=== PATIENT | female | born 1960 | race Caucasian/White ===

== ENCOUNTER 2017-02-28 03:00 | Inpatient (IN) | payer BC, MEDICARE ==
[~2017-02-28] VITALS: Ht 162.6 cm; Wt 57.4 kg
[~2017-02-28 03:00] MED LIST: ALPR0.25 PO; BUPR10TASR PO; CLOB-25 TOP; CYCL10TA PO; FISH100049 PO; FLUO20CA8 PO; FLUO40CA PO; FLUTISP; IMIT50TA PO; KELP100T PO; LEVA1TAB2 PO; LIDO5TD TD; MAGN500C PO; MULT1TAB9 PO; OPTIVAR OU; OXYC-517 PO; PANT40TA2 PO; PRESCAP PO; PROBCAP4 PO; PROT1TAB2 PO; REFR0.1D OU; SERO1TAB PO; SUPETAB25 PO; TOPA1TAB PO; TOPI25TA10 PO; TURM500C3 PO; TUSS1CAP5 PO; VITA100072 PO; WELL200T PO; XANA0.25 PO; tumeric PO
[2017-02-28] MEDS ORDERED: OMEP20CA3 PO (03:26)
[2017-02-28] MEDS ORDERED: ALBU17IN INH (03:26)
[2017-02-28] MEDS ORDERED: BENZ200C53 PO (03:26)
[2017-02-28] MEDS ORDERED: CEFT500T3 PO (03:26)
[2017-02-28] MEDS ORDERED: ONDANSETRON 4MG/2ML VIAL (J2405) IV ONE (04:15)
[2017-02-28] MEDS ORDERED: NS 1,000 ML IV ONE (04:15)
[2017-02-28] MEDS: MORPHINE 4 MG/ML 1ML SYRINGE IV PRN ×7 (04:52→20:25)
[2017-02-28 04:58] LABS: BASO # 0.1 K/mm3 (0.0-0.2); BASO % 0.3 % (0.0-1.0); EOS # 0.6 K/mm3 (0.0-0.50); EOS % 3.3 % (0.0-3.0); LARGE UNSTAINED CELL # 0.2 K/mm3 (0.0-0.4); LARGE UNSTAINED CELL % 0.7 % (0.0-4.0); LYMPH % 14.3 % (24.0-44.0); MEAN CORPUSCULAR HGB CONC 31.8 g/dl (32.0-36.5); MONO # 0.7 K/mm3 (0.0-0.8); MONO % 3.4 % (0.0-5.0); NEUTROPHILS # 15.5 K/mm3 (1.8-7.7); PLATELET COUNT, AUTOMATED 374 k/mm3 (150-450); RED CELL DISTRIBUTION WIDTH 13.3 % (11.5-14.5); WHITE BLOOD COUNT 19.8 K/mm3 (4.0-10.0)
[2017-02-28 05:04] LABS: INR 0.91
[2017-02-28] MEDS ORDERED: LORazepam 2 MG/ML VIAL (J2060) IV STA (05:07)
[2017-02-28 05:22] LABS: ALBUMIN 3.6 GM/DL (3.2-5.2); ALBUMIN/GLOBULIN RATIO 0.88 (1.00-1.93); ALKALINE PHOSPHATASE 138 U/L (45-117); ALT/SGPT 21 U/L (12-78); ANION GAP 10 MEQ/L (8-16); AST/SGOT 17 U/L (15-37); BILIRUBIN,DIRECT < 0.1 MG/DL (0.0-0.2); BILIRUBIN,TOTAL 0.2 MG/DL (0.2-1.0); BLOOD UREA NITROGEN 18 MG/DL (7-18); CALCIUM LEVEL 9.4 MG/DL (8.5-10.1); CARBON DIOXIDE LEVEL 27 MEQ/L (21-32); CHLORIDE LEVEL 103 MEQ/L (98-107); GLOMERULAR FILTRATION RATE > 60.0 (>51); GLUCOSE, FASTING 146 MG/DL (70-105); POTASSIUM SERUM 3.8 MEQ/L (3.5-5.1); SODIUM LEVEL 140 MEQ/L (136-145); TOTAL PROTEIN 7.7 GM/DL (6.4-8.2)
[2017-02-28] MEDS: HYDROmorphone HCL 1 MG/ML SYRINGE (J1170) IV PRN ×2 (05:36→09:17)
[2017-02-28] MEDS ORDERED: ISOVUE-370 76% 100ML VIAL (Q9967) As Ordered ONE (05:49)
--- NOTE | 2017-02-28 06:30 | REPUSA ---
CLINICAL HISTORY: Abdominal pain. TECHNIQUE: Multiple axial, sagittal and coronal CT images were obtained through the abdomen and pelvi s after administration of intravenous contrast material. COMMENTS: Comparison is made to the prior exam performed on 01/23/2016. Interval appearance of a moderate partial small bowel obstruction. Transition zone in the right lower quadrant. Associated swirling of the mesentery is identified at the level of the transition zone in the right l ower quadrant. Significantly distended stomach containing fluid and food residue. No evidence of bowel perforation or pneumatosis intestinalis. Unchanged sliding hiatal hernia. Unchanged hepatic hemangioma. Mild increase in biliary ductal dilatation. The remaining liver is of uniform attenuation without mass or defect. The spleen is normal. The gallbladder is within normal limits. The pancreas is of normal contour and attenuation characteristics. There is no evidence of adrenal mass. Both kidneys demonstrate prompt and equal nephrograms. The kidneys are normal in size, shape and conf iguration. There is no evidence of renal or ureteral mass. No renal or ureteral calculi are identified. There is no hydroureter or hydronephrosis. No evidence for appendicitis. There is no evidence of abdominal ascites or lymphadenopathy. There is no evidence of intrinsic or extrinsic bladder mass. There is no pelvic ascites or lymphadeno collin. Images of the lung bases show no evidence of pleural or parenchymal mass. There are no pleural effusi ons. The bony structures are free of lytic or blastic lesions. Multilevel degenerative changes are seen in volving the thoracolumbar spine. Scattered calcifications are seen involving the aorta and major branches compatible with atherosclero sis. IMPRESSION: Comparison is made to the prior exam performed on 01/23/2016. Interval appearance of a moderate partial small bowel obstruction. Transition zone in the right lower quadrant. Associated swirling of the mesentery is identified at the level of the transition zone in the right l ower quadrant. Nonspecific finding which can be seen in internal hernia. Significantly distended stomach containing fluid and food residue. No evidence of bowel perforation or pneumatosis intestinalis. Unchanged sliding hiatal hernia. Unchanged hepatic hemangioma. Mild increase in biliary ductal dilatation. Thank you for your kind referral of this patient.
[2017-02-28] MEDS ORDERED: ONDANSETRON 4MG/2ML VIAL (J2405) IV PRN (07:45)
[2017-02-28] MEDS ORDERED: ACETAMINOPHEN TAB 650MG DOSE (2X325MG) PO PRN (07:45)
[2017-02-28] MEDS ORDERED: PROMETHAZINE INJ 25 MG/ML VIAL (J2550) IV PRN (07:45)
[2017-02-28] MEDS ORDERED: PERCOCET 5MG/325MG TAB PO PRN (07:45)
[2017-02-28] MEDS ORDERED: CLOB05OI TOP (08:28)
[2017-02-28] MEDS ORDERED: B-1210009 PO (08:28)
[2017-02-28] MEDS ORDERED: FLUT1SPR2 (08:29)
[2017-02-28] MEDS ORDERED: CULT10CA2 PO (08:34)
[2017-02-28] MEDS ORDERED: SERO200T PO (08:39)
[2017-02-28] MEDS ORDERED: TOPI50TA9 PO (08:39)
[2017-02-28] MEDS ORDERED: LINZ290C PO (08:41)
[2017-02-28] MEDS ORDERED: TRAZ1TAB14 PO (08:43)
[2017-02-28] MEDS ORDERED: OXYC-517 PO (08:43)
[2017-02-28] MEDS ORDERED: PEPPERMINT OIL PO (08:46)
[2017-02-28] MEDS ORDERED: FISH1000 PO (08:48)
[2017-02-28] MEDS ORDERED: KETO2CR TOP (08:48)
[2017-02-28] MEDS ORDERED: SUMA25TA3 PO (08:50)
[2017-02-28] MEDS ORDERED: ZOFR20TA PO (08:50)
[2017-02-28] MEDS ORDERED: LORA10TA2 PO (08:51)
[2017-02-28] MEDS ORDERED: BENT20TA PO (08:53)
[2017-02-28] MEDS ORDERED: TYLE325T5 PO (08:53)
[2017-02-28] MEDS ORDERED: [UNRECOGNIZED DRUG - OTHER] PO (08:55)
[2017-02-28] MEDS ORDERED: PEPT262T2 PO (08:55)
[2017-02-28] MEDS ORDERED: KELP100T PO (08:58)
[2017-02-28] MEDS: ENOXAPARIN 40 MG/0.4 ML SYRINGE (J1650) SC SCH (09:33)
[2017-02-28] MEDS: PANTOPRAZOLE 40MG INJ (PROTONIX) (C9113) IV SCH (09:33)
--- NOTE | 2017-02-28 09:38 | HPEPDOC ---
General Surgery H&P Date of Admission History and Physical CHIEF COMPLAINT: abdominal pain HISTORY OF PRESENT ILLNESS: 57-year-old female who presented to the emergency department early this morning sudden onset severe, sharp, lancinating abdominal pain. She had prior history of a perforated prepyloric ulcer last year requiring abdominal surgery, gram patch repair. She had some respiratory decompensation perioperatively. She returned with an intra-abdominal abscess, possibly some degree of ARDS. After this event, patient reports some sort of chronic vague abdominal pain and discomfort and constipation. She had a hiatal hernia repair in August done in [place]. During that time reports that she was admitted for 5 days for fever and shortness of breath. Since that surgery continues to have intermittent abdominal pain. She was placed on limbs as for the constipation. She was in her usual state of health up until late last night when she had some worsening of her pain when she pains mostly periumbilical. She felt nauseated but was unable to throw up. For fear that she had another perforation of her stomach, she was brought to the emergency room. ALLERGIES: Please see below. HOME MEDICATIONS: Please see below. PAST MEDICAL HISTORY: Sarcoidosis Chronic pain History of migraine headaches History of anxiety and depression Chronic fatigue PAST SURGICAL HISTORY: Left shoulder surgery for bone spur [place] bone repair Ovarian cyst removal, via a Pfannenstiel incision Omental patch repair of perforated prepyloric ulcer Laparoscopic hiatal hernia repair August 2016 PERSONAL/SOCIAL HISTORY: Denies smoking, alcohol use, or recreational drug use. REVIEW OF SYSTEMS: GENERAL: Denies chills, fatigue, fever, reports some weight loss from her admission last year for the perforation and the subsequent abscess but her weight has been relatively stable since HEENT: Denies blurred vision and double vision. Denies ear symptoms. Denies hoarseness. NECK: Denies any neck pain. CARDIOVASCULAR: Reports chest wall pain MUSCULOSKELETAL: Denies arthralgias, back pain and thrombophlebitis. SKIN: Denies rash. NEUROLOGIC: Denies headache, stroke and transient ischemic attack. PSYCHIATRIC: Denies anxiety and depression. ENDOCRINE: Denies thyroid disease. HEMATOLOGY/ONCOLOGY: Denies any bleeding or clotting disorder. HEART: Denies any chest pains, palpitations, paroxysmal dyspnea, orthopnea. PULMONARY: Reports chronic cough, exertional dyspnea. She denied gross with acute bronchitis recently has been placed on antibiotics 1 week. GASTROINTESTINAL: Reports constipation, on ilinzess, now having loose stools secondary to the linzess GENITOURINARY: Denies dysuria, frequency, hematuria and nocturia. ENDOCRINE: Denies polydipsia, polyphagia, polyuria, heat or cold intolerance. INFECTIOUS: On antibiotics for acute pancreatitis NUTRITION: Reports fair appetite. PHYSICAL EXAMINATION: VITAL SIGNS: Please see below. GENERAL APPEARANCE: Patient seen at bedside, appears mildly uncomfortable. Awake , alert, oriented. HEENT: Normocephalic, atraumatic. Mild pale palpebral conjunctivae. Anicteric sclerae. Lips dry. CHEST: No chest wall abnormalities. Normal respiratory motion/effort. NECK: Supple. No thyromegaly. No lymphadenopathies. LUNGS: Lung sounds are clear to auscultation bilaterally. No wheezing appreciated. HEART: No chest wall abnormalities. Heart rate and rhythm are regular with no murmurs. ABDOMEN: Abdomen is round, moderately distended, soft, tympanitic. Upper midline incision which is healed, scattered port site/drain incisions. Pfannensteil incision. No umbilical or groin herniation. Mild tenderness over the periumbilical area and likewise at the right lower quadrant area with minimal guarding. SKIN: Warm, moist. EXTREMITIES: Extremities have no deformities. No edema identified. NEUROLOGICAL: Awake, alert, oriented. ANCILLARIES: . LABORATORY DATA: Please see below. MICROBIOLOGY: Please see below. IMAGING: . CT abdomen and pelvis Comparison is made to the prior exam performed on 01/23/2016. Interval appearance of a moderate partial small bowel obstruction. Transition zone in the right lower quadrant. Associated swirling of the mesentery is identified at the level of the transition zone in the right lower quadrant. Nonspecific finding which can be seen in internal hernia. Significantly distended stomach containing fluid and food residue. No evidence of bowel perforation or pneumatosis intestinalis. Unchanged sliding hiatal hernia. Unchanged hepatic hemangioma. Mild increase in biliary ductal dilatation. IMPRESSION AND PLAN: Small bowel obstruction secondary to adhesions Sarcoidosis, with history of respiratory decompensation perioperatively Chronic pain M spoken to the patient and her was at the bedside with her. I have previously met her during her admission last year and I'm aware of care circumstance perioperatively. She had some unexplained respiratory decompensation maybe due to ARDS. She continues to have some vague scattered pain on her chest and her abdomen. Since surgery last year she had a hiatal hernia repair. She again had some unexpected perioperative fever or shortness of breath during that time according to her. His aortotomy do would like to avoid surgery at all possible. Right now no signs of bowel compromise. Her lactic acid is normal. This goes well with a story that this has been just present for several hours. I think she is unable to vomit because of the anal hernia repair. I spoke to them about placing a nasogastric tube to decompress the bowel. This will or may possibly also help us if she needs surgery if her abdomen is decompressed enough that we can create space laparoscopically. She has had a laparoscopic surgery in between the events last year so there is possibility that this are just localized adhesions. We'll plan to continue to monitor her. If there is any evidence of bowel compromise or worsening of her symptoms or nonresolution then she may need surgery. This has been communicated to them. They've had several questions and concerns mainly relating to how she fared last year from her surgery and his were all addressed at this time. They were in agreement with our plan of therapy. I will last the medical service to follow along with us. Vital Signs Vital Signs Date Time Temp Pulse Resp B/P (MAP) Pulse Ox O2 Delivery O2 Flow Rate FiO2 02/28/17 06:06 18 02/28/17 04:39 02/28/17 03:09 97.2 112 98 Room Air Laboratory Data Labs 24H Laboratory Tests 2 02/28/17 04:19: White Blood Count 19.8H, Red Blood Count 4.57, Hemoglobin 12.8, Hematocrit 40.2 , Mean Corpuscular Volume 88.0, Mean Corpuscular Hemoglobin 28.0, Mean Corpuscular Hemoglobin Concent 31.8L, Red Cell Distribution Width 13.3, Platelet Count 374, Neutrophils (%) (Auto) 78.0H, Lymphocytes (%) (Auto) 14.3L, Monocytes (%) (Auto) 3.4, Eosinophils (%) (Auto) 3.3H, Basophils (%) (Auto) 0.3 , Neutrophils # (Auto) 15.5H, Lymphocytes # (Auto) 3.0, Monocytes # (Auto) 0.7, Eosinophils # (Auto) 0.6H, Basophils # (Auto) 0.1, Large Unclassified Cells % 0.7, Large Unclassified Cells # 0.2, Prothrombin Time 12.3L, Prothromb Time International Ratio 0.91, Activated Partial Thromboplast Time 29.2, Anion Gap 10 , Glomerular Filtration Rate > 60.0, Lactic Acid Level 1.5, Calcium Level 9.4, Aspartate Amino Transf (AST/SGOT) 17, Alanine Aminotransferase (ALT/SGPT) 21, Alkaline Phosphatase 138H, Total Bilirubin 0.2, Direct Bilirubin < 0.1, Total Protein 7.7, Albumin 3.6, Albumin/Globulin Ratio 0.88L, Lipase 179 CBC/BMP Laboratory Tests 02/28/17 04:19 Red Blood Count 4.57, Mean Corpuscular Volume 88.0, Mean Corpuscular Hemoglobin 28.0, Mean Corpuscular Hemoglobin Concent 31.8 L, Red Cell Distribution Width 13.3, Neutrophils (%) (Auto) 78.0 H, Lymphocytes (%) (Auto) 14.3 L, Monocytes (% ) (Auto) 3.4, Eosinophils (%) (Auto) 3.3 H, Basophils (%) (Auto) 0.3, Neutrophils # (Auto) 15.5 H, Lymphocytes # (Auto) 3.0, Monocytes # (Auto) 0.7, Eosinophils # (Auto) 0.6 H, Basophils # (Auto) 0.1 Microbiology Microbiology 02/28/17 Gastrointestinal Tract Panel (PCR), Received Pending Home Medications Scheduled (Multivitamin Adults 50+) 1 Tab Tab, 1 TAB PO DAILY, (Reported) (Super B Complex Maxi) 1 Tab Tab, 1 TAB PO DAILY, (Reported) (Preservision Areds) 1 Cap Cap, 1 CAP PO BID, (Reported) Ascophyllum Nodosum (Kelp) 100 Mg Tab, 100 MG PO DAILY, (Reported) Benzonatate (Benzonatate) 200 Mg Cap, 200 MG PO TID, (Reported) Bupropion HCl (Wellbutrin Sr) 200 Mg Tab, 200 MG PO QAM, (Reported) Cefuroxime Axetil (Ceftin) 500 Mg Tab, 500 MG PO BID, (Reported) Curcuma Longa (Turmeric) Extra (Turmeric) 500 Mg Cap, 500 MG PO QAM, (Reported) Cyanocobalamin (B-12) 1,000 Mcg Tab, 1,000 MCG PO DAILY, (Reported) Fish Oil (Fish Oil 1000 mg) 1 Cap Cap, 1,000 MG PO DAILY, (Reported) Fish Oil (Fish Oil) 1,000 Mg Cap, 1,000 MG PO BID, (Reported) Fluoxetine Hcl (Fluoxetine HCl) 40 Mg Cap, 80 MG PO QAM, (Reported) Lactobacillus Rhamnosus (Culturelle) 1 Cap Cap, 1 CAP PO QPM, (Reported) Loratadine (Loratadine) 10 Mg Tab, 10 MG PO DAILY for ALLERGIES, (Reported) Magnesium Oxide (Magnesium) 500 Mg Cap, 500 MG PO QHS, (Reported) Omeprazole (Omeprazole) 20 Mg Cap, 20 MG PO QAM, (Reported) BEFORE BREAKFAST Topiramate (Topiramate) 50 Mg Tab, 50 MG PO QPM, (Reported) FOR MIGRAINES Scheduled PRN Acetaminophen (Tylenol) 325 Mg Tab, 325 MG PO QID PRN for PAIN, (Reported) Albuterol Sulfate (Ventolin Hfa) 200 Puff/8 Gm Aers, 1 DOSE INH QID PRN for SHORTNESS OF BREATH, (Reported) Alprazolam (Xanax) 0.25 Mg Tab, 0.25 MG PO DAILY PRN for ANXIETY, (Reported) Bismuth Salicylate (Pepto Bismol) 262 Mg Tab, 262 MG PO for ABDOMINAL PAIN, ( Reported) Carboxymethylcellulose Sodium (Refresh Plus) 1 E[place], 1 DROP OU QID PRN for DRY EYES, (Reported) Clobetasol Propionate (Clobetasol Propionate) 0.05 % Oin, 1 DOSE TOP DAILY PRN for RASH, (Reported) SCAR ON STOMACH Cyclobenzaprine HCl (Cyclobenzaprine HCl) 10 Mg Tab, 10 MG PO for MUSCLE SPASMS, (Reported) Dicyclomine HCl (Bentyl) 20 Mg Tab, 20 MG PO QID PRN for CRAMPS, (Reported) Fluticasone Propionate (Fluticasone Propionate 0.05%) 120 [place]/16 Gm Naspr, 2 SPRAYS NA BID PRN for ALLERGIES, (Reported) Ketoconazole (Ketoconazole) 2 % Cre, 1 DOSE TOP for RASH, (Reported) SCAR ON STOMACH AND RASH INBETWEEN BUTTOCKS Lidocaine (Lidocaine) 5 % Pad, 1 PATCH TD DAILY PRN for PAIN, (Reported) APPLIES ACROSS NECK Linaclotide Base (Linzess) 290 Mcg Cap, 290 MCG PO DAILY PRN for CONSTIPATION, ( Reported) FOR OPIOID-INDUCED CONSTIPATION Ondansetron HCl (Zofran) 4 Mg Tab, 4 MG PO for NAUSEA, (Reported) FOR MIGRAINES Oxycodone HCl (Oxycodone HCl) 5 Mg Tab, 5 MG PO 5XD PRN for PAIN, (Reported) Quetiapine Fumerate (Seroquel) 200 Mg Tab, 200 MG PO QHS PRN for SLEEP, ( Reported) Sumatriptan Succinate (Sumatriptan Succinate) 25 Mg Tab, 25 MG PO for MIGRAINE, (Reported) Trazodone HCl (Trazodone HCl) 150 Mg Tab, 37.5 MG PO QHS PRN for SLEEP, ( Reported) SPLITS TAB IN 4, BUT ADJUSTS NEEDED [Dulcogas] , 1 CAP PO for ABDOMINAL PAIN, (Reported) [Peppermint Oil] , 1 CAP PO for CONSTIPATION, (Reported) WITH LINZESS Allergies Coded Allergies: No Known Allergies (Unverified , 01/15/16) BETTY WORLEY MD Feb 28, 2017 07:38
[2017-02-28] MEDS: PERCOCET 5MG/325MG TAB PO PRN ×3 (09:45→22:29)
[2017-02-28] MEDS ORDERED: FLUTICASONE PROP 0.05% NASAL SPRAY 16 GM (FLONASE) PRN (12:00)
[2017-02-28] MEDS ORDERED: LIDOCAINE 5% (LIDODERM) PATCH TD PRN (12:00)
[2017-02-28] MEDS ORDERED: CLOBETASOL PROP 0.05% OINT 30 GM TOP PRN (12:00)
[2017-02-28] MEDS ORDERED: ALPRAZolam 0.25 MG TAB PO PRN (12:00)
[2017-02-28] MEDS ORDERED: LEVALBUTEROL 1.25 MG/0.5 ML CONCENTRATE NEB INH SCH (12:00)
[2017-02-28] MEDS ORDERED: LEVALBUTEROL 1.25 MG/0.5 ML CONCENTRATE NEB INH PRN ×2 (12:00→17:00)
--- NOTE | 2017-02-28 12:01 | REP ---
CHEST, TWO VIEWS: Two views of the chest are performed. There is interstitial fibrosis without evidence of acute infiltrate. The cardiomediastinal silhouette is unremarkable. The visualized osseous structures appear intact. There is a small hiatal hernia. IMPRESSION: No acute infiltrate. Signed by Audie Grant MD 02/28/2017 03:14 P
[2017-02-28] MEDS: FLUoxetine 20 MG CAP PO SCH (12:54)
[2017-02-28] MEDS: LR 1,000 ML IV SCH ×3 (12:54→20:30)
[2017-02-28] MEDS: ALPRAZolam 0.25 MG TAB PO PRN (12:55)
--- NOTE | 2017-02-28 13:31 | CR ---
DATE OF CONSULTATION: 02/28/2017 PRIMARY CARE PHYSICIAN: None. The patient lives in [place], vacationing in the area. REFERRING PHYSICIAN: Steve Lock MD REASON FOR CONSULTATION: Medical management. CHIEF COMPLAINT: Abdominal pain. HISTORY OF PRESENTING ILLNESS: This is a 57-year-old female with past medical history significant for a perforated ulcer, status post repair, sarcoidosis, chronic fatigue, depression, migraines, ovarian cyst, and bone spur, presents to the emergency room with 1-week history of on-and-off stomachache. The patient describes the pain in the bilateral lower quadrants as sharp without any radiation unrelieved with Bentyl, Linzess, Pepto-Bismol at home, and DulcoGas. She describes a crampy pain at times, feels a bit bowel gas without fever, weight loss, decreased appetite, accompanied with loose bowel movements for the past few days, about 5-6 daily, watery, nonbloody, nonmucusy. The patient has been having on-and-off abdominal discomfort for the past week but worsened last night at midnight about 11 hours prior to presentation. She states that her sarcoidosis often causes her pain in the chest and abdomen, and it was difficult for her to tell where the pain was coming from. She was evaluated by her dry janitor with esophagogastroduodenoscopy (EGD), thinking that her abdominal discomfort was because of adhesions. EGD showed the hernia site was healing well. She thought that the pain may have been opioid-induced constipation, and the patient was placed on Linzess. Over the past couple of weeks, the patient was having cough, cold symptoms. Was given antibiotics for bronchitis. She then developed abdominal pain and 5-6 loose bowel movements. She stopped her Linzess due to increasing abdominal discomfort and loose bowel movements; and for the past 7 days, her abdominal pain has worsened despite taking Bentyl, Pepto-Bismol, Dulcolax. Prompted her to present to the emergency room last night for admission. PAST MEDICAL HISTORY: Sarcoidosis. osteoarthritis Anxiety and depression. Pneumonia. Chronic fatigue. Chronic pain. Depression. History of migraines. History of ovarian cyst. Bone spur. 02/20 perforated prepyloric gastric ulcer s/p juliane patch repair LVEF 65% 02/20 echo very mild Mitral and Tricuspid insufficiency moderate pulmonary hypertension PAST SURGICAL HISTORY: 02/20 , prepyloric perforated ulcer juliane patch repair. 02/20 u/s-guided abdominal drain placement by IR 02/20 Central venous line placement Endotracheal tube ventilation for acute respiratory distress Right eye surgery. Right cheekbone surgery. Ovarian cyst removal. ALLERGIES: No known drug allergies. SOCIAL HISTORY: Never smoked or drank alcohol. Lives in [place]. Has no primary care physician in [place]. FAMILY HISTORY: Noncontributory. REVIEW OF SYSTEMS: 12-point system negative aside from positive findings in history of present illness (HPI). PHYSICAL EXAMINATION: VITAL SIGNS: Temperature 97.2, pulse 112, respiratory rate 20, blood pressure 110/66, 98% on room air. Generally, the patient is awake, alert, oriented to person, place, and time, answering questions appropriately. Anicteric sclerae. No jaundice. No respiratory distress. No use of respiratory accessory muscles. Dry mucous membranes. No cervical lymphadenopathy or thyromegaly. No pharyngeal erythema. Lungs are clear to auscultation. No wheezing, rales, or rhonchi. Heart: S1, S2, sinus rhythm. Abdomen: Is soft, tender in the bilateral lower quadrants. No rebound or guarding. Hyperactive bowel sounds. Extremities: Have no cyanosis, clubbing, or pitting edema. LABORATORY DATA: CBC: White count 19.8, hemoglobin 12, hematocrit 40, platelet count 374, 78% neutrophils. Sodium 140, potassium 3.8, chloride 103, bicarbonate 27, BUN 18, creatinine 0.90 , glucose 146, lactic acid 1.5, calcium 9.4, total bilirubin (T Bili) 0.2, direct bilirubin less than 0.1, AST 17, ALT 21, alkaline phosphatase 138, total CK of 30, MB fraction of 1, troponin less than 0.02, total protein 7.7, albumin of 3.6 , albumin-globulin ratio 0.88, and lipase of 179. Gastrointestinal (GI) panel was negative. CT abdomen and pelvis shows no evidence of bowel perforation or pneumatosis intestinalis. Unchanged sliding hiatal hernia. Unchanged hepatic hemangioma. Mild increase in biliary ductal dilatation. Interval appearance of a moderate partial small bowel obstruction. Transition zone in the right lower quadrant with swirling of the mesentery identified at the level of the transition zone in the right lower quadrant. The spleen is normal. Gallbladder is within normal. The pancreas is normal. ASSESSMENT AND PLAN: This is a 57-year-old female with history of sarcoidosis, not on chronic prednisone with normal pulmonary function tests (PFTs), according to the patient, chronic pain, migraine symptoms, headaches, anxiety, depression, history of perforated prepyloric ulcer, laparoscopic hiatal hernia repair in August 2016, chronic fatigue, jawbone repair, and left shoulder surgery for a bone spur, presents to the emergency room with on-and-off abdominal discomfort for 1 week, which has worsened over the past 24 hours, prompting her to present to the emergency room. She had recently been on antibiotics for bronchitis and developed severe diarrhea 5-6 loose bowel movements, stopping her Linzess, had no improvement. She now presents to the emergency room. Was found to have a partial small bowel obstruction. The hospitalist service was consulted for medical management of her chronic illness. CURRENT ISSUES: Are: 1. Partial small bowel obstruction secondary to adhesions. The patient is admitted under surgical services. Nothing by mouth status. Intravenous (IV) fluids. Surgeon to determine the need for a nasogastric tube drainage. Currently, asymptomatic without nausea or vomiting. No significant abdominal distention on examination. Appears to be comfortable after IV morphine. 2. Preoperative medical clearance. Will obtain pulmonary function test (PFT) from her quality control analyst in [place] and will clear accordingly. At this time, she appears to be saturating well on room air. Will obtain a chest x-ray and electrocardiogram (EKG). The patient is usually limited with activities of daily living with shortness of breath and chronic fatigue. Unable to assess for true cardiac or pulmonary issues. The patient is not medically cleared until PFT results are obtained. 3. History of sarcoidosis. No pulmonary function testings are available to me. The patient apparently had a history of multiple bronchoscopies with negative findings. Will obtain records from her primary care physician, Dr. Jania Macias, phone number [phone]. 4. History of chronic fatigue and chronic depression with migraines. Continue home medications once resumes oral status. 5. History of ovarian cyst, stable. 6. Bone spur, chronic. 7. Deep venous thrombosis (DVT) prophylaxis with compression stockings. ADDENDUM: I have spoken with Marya Gaming's primary care physician in [place], Dr. Jania Macias, phone number is [phone]. He indicates that the patient had normal pulmonary function testing previously, had no history of coronary artery disease or myocardial infarction (LA) in the past. She had an abnormal EKG with nonspecific ST changes in V1 only, but was asymptomatic. She was referred at that time to a shop teacher, but the patient did not show up. According to him, the patient has had no issues with heart disease, LA or congestive heart failure (CHF), sarcoidosis is nonpulmonary, has not required any prednisone, not steroid dependent and has had a normal chest x-ray from his previous records in the past year. At this time, the patient appears to be stable from the sarcoidosis point of view. She has had no prior history of coronary heart disease. She is currently medically optimized to proceed to surgery if needed. Obtain a 12 lead EKG and support her with nebulizer treatments as needed. Hold all anticoagulation and monitor the patient's blood pressure. Addendum [facility] 02/28/2017 OMARD
[2017-02-28 16:14] VITALS: BP 108/68
--- NOTE | 2017-02-28 17:32 | ECGEPIP ---
Stationary ECG Study [facility] Test Date: 2017-02-28 Pat Name: CARLOS ALBERTO VINCENT Department: PCU Room: [place] [address] Gender: F Government Instructor: AJ : 1960 Requested By: SCOTT Ahumada Order Number: [id number] Reading MD: Kasey Lroenzo Measurements Intervals [place] Rate: 83 P: 3 [place]: 141 QRS: -26 QRSD: 86 T: 3 QT: 366 QTc: 430 Interpretive Statements SINUS RHYTHM INFERIOR MYOCARDIAL INFARCTION, PROBABLY OLD BUT NEW C/W 01/21/16 RATE SLOWER Electronically Signed On 02-28-2017 17:32:23 EDT by Kasey Lorenzo
[2017-02-28] MEDS: CHLORASEPTIC SPRAY MT PRN (17:51)
[2017-02-28 20:00] VITALS: BP 108/60
[2017-02-28 22:19] VITALS: BP 110/72
[2017-02-28] MEDS: traZODone 50 MG TAB PO SCH (22:21)
[2017-02-28] MEDS: QUEtiapine FUMARATE 200 MG TAB PO SCH (22:21)
[2017-02-28] MEDS: TOPIRAMATE (TopAMAX) 25 MG TAB PO SCH (22:21)
[2017-02-28 23:59] VITALS: BP 98/52
[2017-03-01] MEDS: MORPHINE 4 MG/ML 1ML SYRINGE IV PRN ×5 (01:40→16:53)
[2017-03-01] MEDS: CHLORASEPTIC SPRAY MT PRN ×4 (03:06→16:52)
[2017-03-01] MEDS: LR 1,000 ML IV SCH ×2 (03:06→15:37)
[2017-03-01] MEDS: PERCOCET 5MG/325MG TAB PO PRN ×3 (05:24→20:53)
[2017-03-01 05:43] LABS: BASO % 0.4 % (0.0-1.0); EOS # 0.8 K/mm3 (0.0-0.50); EOS % 10.3 % (0.0-3.0); LARGE UNSTAINED CELL # 0.1 K/mm3 (0.0-0.4); LARGE UNSTAINED CELL % 1.2 % (0.0-4.0); LYMPH # 2.3 K/mm3 (1.5-4.5); LYMPH % 26.5 % (24.0-44.0); MEAN CORPUSCULAR HEMOGLOBIN 28.2 pg (27.0-33.0); MEAN CORPUSCULAR HGB CONC 32.1 g/dl (32.0-36.5); MEAN CORPUSCULAR VOLUME 88.1 fl (80.0-96.0); MONO # 0.4 K/mm3 (0.0-0.8); MONO % 4.4 % (0.0-5.0); NEUTROPHILS # 4.7 K/mm3 (1.8-7.7); NEUTROPHILS % 57.3 % (36.0-66.0); PLATELET COUNT, AUTOMATED 272 k/mm3 (150-450); RED CELL DISTRIBUTION WIDTH 13.3 % (11.5-14.5); WHITE BLOOD COUNT 8.3 K/mm3 (4.0-10.0)
[2017-03-01] MEDS: ALPRAZolam 0.25 MG TAB PO PRN ×2 (05:46→22:24)
[2017-03-01 05:49] VITALS: BP 106/60
[2017-03-01 06:07] LABS: ANION GAP 7 MEQ/L (8-16); BLOOD UREA NITROGEN 9 MG/DL (7-18); CALCIUM LEVEL 8.2 MG/DL (8.5-10.1); CARBON DIOXIDE LEVEL 27 MEQ/L (21-32); CHLORIDE LEVEL 111 MEQ/L (98-107); CREATININE FOR GFR 0.63 MG/DL (0.55-1.02); GLOMERULAR FILTRATION RATE > 60.0 (>51); GLUCOSE, FASTING 82 MG/DL (70-105); POTASSIUM SERUM 3.9 MEQ/L (3.5-5.1); SODIUM LEVEL 145 MEQ/L (136-145)
[2017-03-01 08:00] VITALS: BP 97/54
[2017-03-01] MEDS: ENOXAPARIN 40 MG/0.4 ML SYRINGE (J1650) SC SCH (10:07)
[2017-03-01] MEDS: PANTOPRAZOLE 40MG INJ (PROTONIX) (C9113) IV SCH (10:08)
[2017-03-01] MEDS: buPROPion (WELLBUTRIN SR) 100 MG SR TAB PO SCH (10:08)
[2017-03-01] MEDS: FLUoxetine 20 MG CAP PO SCH (10:08)
--- NOTE | 2017-03-01 10:31 | IPNPDOC ---
Subjective General Date/Time Seen The patient was seen on 03/01/17 at 10:25. Subject Chief Complaint/History The patient is a 57-year-old female admitted with a reason for visit of Small Bowel Obstruction. Patient complains of throat pain, headaches from the NG tube, not much abdominal pain or discomfort. She reports she is passing flatus. Current Medications Current Medications Current Medications Acetaminophen (Tylenol Tab) 650 mg Q4HP PRN PO MILD PAIN or TEMP > 101; Start 02/28/17 at 07:45; Stop 03/30/17 at 07:44 Alprazolam (Xanax) 0.25 mg DAILY PRN PO ANXIETY; Start 02/28/17 at 12:00; Stop 02/28/17 at 12:21; Status DC Alprazolam (Xanax) 0.25 mg Q6HP PRN PO ANXIETY Last administered on 03/01/17 05:46; Start 02/28/17 at 12:30; Stop 03/07/17 at 12:29 Bupropion HCl (Wellbutrin Sr) 200 mg QAM PO Last administered on 03/01/17 10: 08; Start 03/01/17 at 09:00; Stop 03/31/17 at 08:59 Clobetasol Propionate (Temovate 0.05%) 1 dose DAILY PRN TOP RASH; Start at 12:00; Stop 03/30/17 at 11:59 Enoxaparin Sodium (Lovenox) 40 mg DAILY SC Last administered on 03/01/17 10:07 ; Start 02/28/17 at 09:00; Stop 03/05/17 at 08:59 Fluoxetine HCl (PROzac) 80 mg QAM PO Last administered on 03/01/17 10:08; Start 02/28/17 at 09:00; Stop 03/30/17 at 08:59 Fluticasone Propionate (Flonase 0.05% Nasal [place]) 2 spray BID PRN NA ALLERGIES ; Start 02/28/17 at 12:00; Stop 03/30/17 at 11:59 Home Med (Med Rec Complete!) ASDIRECTED XX ; Start 02/28/17 at 09:00; Stop at 09:00; Status DC Hydromorphone HCl (Dilaudid) 1 mg Q30M PRN IV SEVERE PAIN (PS 8-10) Last administered on 02/28/17 05:36; Start 02/28/17 at 05:45 Lactated Ringer's 1,000 ml @ 125 mls/hr Q8H IV Last administered on 02/28/17 20:30; Start 02/28/17 at 07:32; Stop 03/30/17 at 07:31 Levalbuterol HCl (Xopenex Neb) 1.25 mg Q1HP PRN INH SHORTNESS OF BREATH; Start 02/28/17 at 12:00; Stop 03/30/17 at 11:59; Status Cancel Levalbuterol HCl (Xopenex Neb) 1.25 mg Q4HP PRN INH SOB/WHEEZING; Start at 17:00; Stop 03/30/17 at 16:59 Levalbuterol HCl (Xopenex Neb) 1.25 mg RQID INH ; Start 02/28/17 at 12:00; Stop 02/28/17 at 16:52; Status DC Lidocaine (Lidoderm Patch) 1 patch DAILY PRN TD PAIN; Start 02/28/17 at 12:00; Stop 03/30/17 at 11:59 Lorazepam (Ativan) 0.5 mg STAT STAT IV Last administered on 02/28/17 05:16; Start 02/28/17 at 05:07; Stop 02/28/17 at 05:08; Status DC Morphine Sulfate (Morphine Sulfate Inj) 4 mg Q15M PRN IV MODERATE/SEVERE PAIN ( PS 5-10) Last administered on 02/28/17 05:16; Start 02/28/17 at 04:15; Stop at 05:18; Status DC Morphine Sulfate (Morphine Sulfate Inj) 4 mg Q2HP PRN IV SEVERE PAIN (PS 8-10) Last administered on 03/01/17 08:37; Start 02/28/17 at 07:45; Stop 03/07/17 at 07:44 Non-Formulary Medication ( See Comment Field Below ) REMOVE LIDODERM PATCH DAILY@21 XX ; Start 02/28/17 at 21:00; Stop 03/30/17 at 20:59 Ondansetron HCl (ZOFRAN INJection) 4 mg Q6HP PRN IV NAUSEA OR VOMITING; Start 02/28/17 at 07:45; Stop 03/30/17 at 07:44 Oxycodone/ Acetaminophen (Percocet 5mg/ 325mg Tablet) 1 tab Q4HP PRN PO MODERATE PAIN (PS 5-7); Start 02/28/17 at 07:45; Stop 03/07/17 at 07:44 Oxycodone/ Acetaminophen (Percocet 5mg/ 325mg Tablet) 2 tab Q6HP PRN PO SEVERE PAIN (PS 8-10) Last administered on 03/01/17 05:24; Start 02/28/17 at 07:45; Stop 03/07/17 at 07:44 Pantoprazole Sodium (Protonix) 40 mg DAILY IV Last administered on 03/01/17 10 :08; Start 02/28/17 at 09:00; Stop 03/30/17 at 08:59 Phenol (Chloraseptic (Cepacol)) 5 spray Q2HP PRN MT SORE THROAT Last administered on 03/01/17 08:41; Start 02/28/17 at 15:45; Stop 03/30/17 at 15:44 Promethazine HCl (PHENERGAN INJection) 12.5 mg Q6HP PRN IV NAUSEA; Start at 07:45; Stop 03/30/17 at 07:44 Quetiapine Fumarate (SEROquel) 200 mg QHS PO Last administered on 02/28/17 22: 21; Start 02/28/17 at 21:00; Stop 03/30/17 at 20:59 Topiramate (TopAMAX) 50 mg QPM PO Last administered on 02/28/17 22:21; Start 02/28/17 at 21:00; Stop 03/30/17 at 20:59 Trazodone HCl (Desyrel) 37.5 mg QHS PO Last administered on 02/28/17 22:21; Start 02/28/17 at 21:00; Stop 03/30/17 at 20:59 Allergies Coded Allergies: No Known Allergies (Unverified , 01/15/16) Objective Physical Examination Examination GENERAL APPEARANCE:Patient seen, laying in bed, awake, alert, and oriented. Uncomfortable with the NG, in no acute distress. SKIN: Warm and dry HEENT: Normocephalic, atraumatic. [place] palpebral conjunctiva, anicteric sclerae. Lips and mucosa appear dry, NGT in place, functioning NECK: Supple, no thyromegaly. No obvious jugular venous distention. LUNGS: Clear to auscultation bilaterally. No wheezing appreciated. HEART: No chest wall abnormalities. Regular rate and rhythm with no murmurs appreciated. ABDOMEN: Abdomen is round, soft, nondistended, nontender on palpation. EXTREMITIES: Extremities have no deformities. No edema identified. Vital Signs Vital Signs Date Time Temp Pulse Resp B/P (MAP) Pulse Ox O2 Delivery O2 Flow Rate FiO2 03/01/17 08:47 18 Nasal Cannula 2.0 03/01/17 08:00 98.3 83 97/54 (68) 96 I&Os I&O- Last 24 Hours up to 6 AM 03/01/17 06:00 Intake Total 1687.5 ml Output Total 650 ml Balance 1037.5 ml Laboratory Data Labs 24H Laboratory Tests 2 02/28/17 18:07: Bedside Glucose (Misc Panel) 86 03/01/17 05:17: White Blood Count 8.3, Red Blood Count 3.92L, Hemoglobin 11.1L, Hematocrit 34.6L , Mean Corpuscular Volume 88.1, Mean Corpuscular Hemoglobin 28.2, Mean Corpuscular Hemoglobin Concent 32.1, Red Cell Distribution Width 13.3, Platelet Count 272, Neutrophils (%) (Auto) 57.3, Lymphocytes (%) (Auto) 26.5, Monocytes ( %) (Auto) 4.4, Eosinophils (%) (Auto) 10.3H, Basophils (%) (Auto) 0.4, Neutrophils # (Auto) 4.7, Lymphocytes # (Auto) 2.3, Monocytes # (Auto) 0.4, Eosinophils # (Auto) 0.8H, Basophils # (Auto) 0.0, Large Unclassified Cells % 1.2, Large Unclassified Cells # 0.1, Anion Gap 7L, Glomerular Filtration Rate > 60.0, Blood Urea Nitrogen 9, Creatinine 0.63, Sodium Level 145, Potassium Level 3.9, Chloride Level 111H, Carbon Dioxide Level 27, Calcium Level 8.2L CBC/BMP Laboratory Tests 03/01/17 05:17 Red Blood Count 3.92 L, Mean Corpuscular Volume 88.1, Mean Corpuscular Hemoglobin 28.2, Mean Corpuscular Hemoglobin Concent 32.1, Red Cell Distribution Width 13.3, Neutrophils (%) (Auto) 57.3, Lymphocytes (%) (Auto) 26.5, Monocytes (%) (Auto) 4.4, Eosinophils (%) (Auto) 10.3 H, Basophils (%) ( Auto) 0.4, Neutrophils # (Auto) 4.7, Lymphocytes # (Auto) 2.3, Monocytes # (Auto ) 0.4, Eosinophils # (Auto) 0.8 H, Basophils # (Auto) 0.0, Calcium Level 8.2 L Microbiology Microbiology 02/28/17 Gastrointestinal Tract Panel (PCR) - Final, Complete Impression small bowel obstruction seems to be resolved. Reviewed with them xray results showing air at the left colon now, no discernible distended small bowel. Clamp NG tube, will reeval later if we can discontinue NG Advised patient to ambulate to hallways Plan / VTE VTE Prophylaxis Ordered?: Yes BETTY WORLEY MD Mar 01, 2017 10:31
--- NOTE | 2017-03-01 10:55 | REP ---
ABDOMEN SERIES: Three views. HISTORY: Followup small bowel obstruction. COMPARISON STUDY: February 28, 2017. FINDINGS: Upright chest radiograph demonstrates an NG tube with its tip in the gastric fundus. EKG electrodes are seen. Oxygen delivery tubing is noted. Diffuse interstitial lung disease is visible unchanged from prior study allowing for a lesser level of inspiration today. No free subdiaphragmatic air or focal infiltrate is seen. Heart size is normal. Supine and upright views of the abdomen demonstrate improvement in the bowel gas pattern since the 02/28/2017 CT study. The stomach and small bowel are decompressed. There is more gas in the descending colon and transverse colon. No dilated small bowel is appreciated today. IMPRESSION: Small bowel obstruction pattern is resolved, post NG tube placement. Signed by Lencho Nunez MD 03/01/2017 11:50 A
[2017-03-01 12:02] VITALS: BP 112/64
[2017-03-01 16:00] VITALS: BP 102/58
[2017-03-01 20:00] VITALS: BP 110/57
[2017-03-01] MEDS: QUEtiapine FUMARATE 200 MG TAB PO SCH (20:52)
[2017-03-01] MEDS: traZODone 50 MG TAB PO SCH (20:54)
[2017-03-01] MEDS: TOPIRAMATE (TopAMAX) 25 MG TAB PO SCH (20:54)
[2017-03-01 23:59] VITALS: BP 114/57
[2017-03-02 04:00] VITALS: BP 88/49
[2017-03-02 04:50] VITALS: BP 109/59
[2017-03-02 05:43] LABS: BASO % 0.1 % (0.0-1.0); EOS # 0.5 K/mm3 (0.0-0.50); EOS % 6.7 % (0.0-3.0); LARGE UNSTAINED CELL # 0.1 K/mm3 (0.0-0.4); LARGE UNSTAINED CELL % 1.4 % (0.0-4.0); LYMPH # 2.3 K/mm3 (1.5-4.5); LYMPH % 27.6 % (24.0-44.0); MEAN CORPUSCULAR HGB CONC 31.8 g/dl (32.0-36.5); MEAN CORPUSCULAR VOLUME 88.1 fl (80.0-96.0); MONO # 0.4 K/mm3 (0.0-0.8); MONO % 5.5 % (0.0-5.0); NEUTROPHILS # 4.7 K/mm3 (1.8-7.7); NEUTROPHILS % 58.6 % (36.0-66.0); PLATELET COUNT, AUTOMATED 270 k/mm3 (150-450); RED CELL DISTRIBUTION WIDTH 13.3 % (11.5-14.5)
[2017-03-02 05:54] LABS: ANION GAP 10 MEQ/L (8-16); BLOOD UREA NITROGEN 6 MG/DL (7-18); CALCIUM LEVEL 8.4 MG/DL (8.5-10.1); CARBON DIOXIDE LEVEL 28 MEQ/L (21-32); CHLORIDE LEVEL 110 MEQ/L (98-107); CREATININE FOR GFR 0.55 MG/DL (0.55-1.02); GLOMERULAR FILTRATION RATE > 60.0 (>51); GLUCOSE, FASTING 72 MG/DL (70-105); POTASSIUM SERUM 3.5 MEQ/L (3.5-5.1); SODIUM LEVEL 148 MEQ/L (136-145)
[2017-03-02 08:00] VITALS: BP 120/74
[2017-03-02] MEDS: FLUoxetine 20 MG CAP PO SCH (08:31)
[2017-03-02] MEDS: buPROPion (WELLBUTRIN SR) 100 MG SR TAB PO SCH (08:33)
[2017-03-02] MEDS: ENOXAPARIN 40 MG/0.4 ML SYRINGE (J1650) SC SCH (08:34)
[2017-03-02] MEDS: PANTOPRAZOLE 40MG INJ (PROTONIX) (C9113) IV SCH (08:34)
[2017-03-02 12:00] VITALS: BP 116/70
--- NOTE | 2017-03-19 22:25 | DS.PDOC ---
Discharge Summary General Date of Admission Feb 28, 2017 at 07:32 Date of Discharge 03/02/2017 Attending Physician: BETTY WORLEY MD Specialist/Consultants Involve: SCOTT CHOWDHURY MD Specialist/Consultants Involve Hospitalist Service Discharge Summary PROCEDURES PERFORMED DURING STAY: None. ADMITTING DIAGNOSES: 1. Small bowel obstruction 2. Previous history of perforated ulcer 3. Chronic pain DISCHARGE DIAGNOSES: 1. Small bowel obstruction secondary to adhesion resolved 2. Chronic pain COMPLICATIONS/CHIEF COMPLAINT: Small Bowel Obstruction. HISTORY OF PRESENT ILLNESS: See HPI HOSPITAL COURSE: Patient was seen in the emergency room. She presented with complaints of acute onset of epigastric and periumbilical crampy abdominal pain with nausea. She was found to have evidence for small bowel obstruction on CT. At the time that I saw her nasogastric tube has been placed with drainage of bilious fluid with patient getting comfortable and feeling improved. She was started on IV fluid hydration. I contacted the hospitalist service to follow along with the patient given prior history of a complicated postoperative course last year when she presented with perforated ulcer and subsequently intra -abdominal postoperative abscess. She was admitted for monitoring of her respiratory status on a monitored floor. Patient noted gradual improvement. By the following morning patient feels improved and is passing flatus. Nasogastric tube was clamped which she tolerated subsequently discontinued. She was started on liquids. She was progressed to regular food which she tolerated. She was subsequently discharged home in improved. DISCHARGE MEDICATIONS: Please see below. ALLERGIES: Please see below. PHYSICAL EXAMINATION ON DISCHARGE: VITAL SIGNS: Please see below. GENERAL: Comfortable HEENT: [place] palpebral conjunctiva anicteric sclerae NECK: Noted jugular venous distention CARDIOVASCULAR EXAMINATION: Regular heart rate and rhythm RESPIRATORY EXAMINATION: Clear breath sounds bilaterally no wheezing ABDOMINAL EXAMINATION: Slightly rounded, soft, nondistended nontender EXTREMITIES: No edema SKIN: And no skin rashes NEUROLOGICAL EXAMINATION: Awake, alert, oriented PSYCHIATRIC EXAMINATION: Mode and affect is normal LABORATORY DATA: Please see below. IMAGING: CT scan of the abdomen and pelvis PROGNOSIS: Good ACTIVITY: As tolerated. DIET: Regular diet as tolerated. DISCHARGE PLAN: Discharge to home. Follow up when necessary DISPOSITION: 01 Home, Self-Care. DISCHARGE INSTRUCTIONS: No restrictions required. She was returned to her regular diet and regular medications. Discussed with patient possibility of recurrence. Follow up as needed DISCHARGE CONDITION: Stable. TIME SPENT ON DISCHARGE: Greater than 30 minutes. Discharge Medications Scheduled (Multivitamin Adults 50+) 1 Tab Tab, 1 TAB PO DAILY, (Reported) (Super B Complex Maxi) 1 Tab Tab, 1 TAB PO DAILY, (Reported) (Preservision Areds) 1 Cap Cap, 1 CAP PO BID, (Reported) Ascophyllum Nodosum (Kelp) 100 Mg Tab, 100 MG PO DAILY, (Reported) Benzonatate (Benzonatate) 200 Mg Cap, 200 MG PO TID, (Reported) Bupropion HCl (Wellbutrin Sr) 200 Mg Tab, 200 MG PO QAM, (Reported) Cefuroxime Axetil (Ceftin) 500 Mg Tab, 500 MG PO BID, (Reported) Curcuma Longa (Turmeric) Extra (Turmeric) 500 Mg Cap, 500 MG PO QAM, (Reported) Cyanocobalamin (B-12) 1,000 Mcg Tab, 1,000 MCG PO DAILY, (Reported) Fish Oil (Fish Oil 1000 mg) 1 Cap Cap, 1,000 MG PO DAILY, (Reported) Fish Oil (Fish Oil) 1,000 Mg Cap, 1,000 MG PO BID, (Reported) Fluoxetine Hcl (Fluoxetine HCl) 40 Mg Cap, 80 MG PO QAM, (Reported) Lactobacillus Rhamnosus (Culturelle) 1 Cap Cap, 1 CAP PO QPM, (Reported) Loratadine (Loratadine) 10 Mg Tab, 10 MG PO DAILY for ALLERGIES, (Reported) Magnesium Oxide (Magnesium) 500 Mg Cap, 500 MG PO QHS, (Reported) Omeprazole (Omeprazole) 20 Mg Cap, 20 MG PO QAM, (Reported) BEFORE BREAKFAST Topiramate (Topiramate) 50 Mg Tab, 50 MG PO QPM, (Reported) FOR MIGRAINES Scheduled PRN Acetaminophen (Tylenol) 325 Mg Tab, 325 MG PO QID PRN for PAIN, (Reported) Albuterol Sulfate (Ventolin Hfa) 200 Puff/8 Gm Aers, 1 DOSE INH QID PRN for SHORTNESS OF BREATH, (Reported) Alprazolam (Xanax) 0.25 Mg Tab, 0.25 MG PO QIDP PRN for ANXIETY, (Reported) Bismuth Salicylate (Pepto Bismol) 262 Mg Tab, 262 MG PO for ABDOMINAL PAIN, ( Reported) Carboxymethylcellulose Sodium (Refresh Plus) 1 [place], 1 DROP OU QID PRN for DRY EYES, (Reported) Clobetasol Propionate (Clobetasol Propionate) 0.05 % Oin, 1 DOSE TOP DAILY PRN for RASH, (Reported) SCAR ON STOMACH Cyclobenzaprine HCl (Cyclobenzaprine HCl) 10 Mg Tab, 10 MG PO for MUSCLE SPASMS, (Reported) Dicyclomine HCl (Bentyl) 20 Mg Tab, 20 MG PO QID PRN for CRAMPS, (Reported) Fluticasone Propionate (Fluticasone Propionate 0.05%) 120 [place]man/16 Gm Naspr, 2 SPRAYS NA BID PRN for ALLERGIES, (Reported) Ketoconazole (Ketoconazole) 2 % Cre, 1 DOSE TOP for RASH, (Reported) SCAR ON STOMACH AND RASH INBETWEEN BUTTOCKS Lidocaine (Lidocaine) 5 % Pad, 1 PATCH TD DAILY PRN for PAIN, (Reported) APPLIES ACROSS NECK Linaclotide Base (Linzess) 290 Mcg Cap, 290 MCG PO DAILY PRN for CONSTIPATION, ( Reported) FOR OPIOID-INDUCED CONSTIPATION Ondansetron HCl (Zofran) 4 Mg Tab, 4 MG PO for NAUSEA, (Reported) FOR MIGRAINES Oxycodone HCl (Oxycodone HCl) 5 Mg Tab, 5 MG PO 5XD PRN for PAIN, (Reported) Quetiapine Fumerate (Seroquel) 200 Mg Tab, 200 MG PO QHS PRN for SLEEP, ( Reported) Sumatriptan Succinate (Sumatriptan Succinate) 25 Mg Tab, 25 MG PO for MIGRAINE, (Reported) Trazodone HCl (Trazodone HCl) 150 Mg Tab, 37.5 MG PO QHS PRN for SLEEP, ( Reported) SPLITS TAB IN 4, BUT ADJUSTS NEEDED [Dulcogas] , 1 CAP PO for ABDOMINAL PAIN, (Reported) [Peppermint Oil] , 1 CAP PO for CONSTIPATION, (Reported) WITH LINZESS Allergies Coded Allergies: No Known Allergies (Unverified , 01/15/16) BETTY WORLEY MD Mar 19, 2017 22:25
== END 2017-03-02 14:40 | disposition home or self-care (01) | DRG 247 ==
LOC: M ED 03:00 → M ED INP 07:32 → M PCU 16:00
PROVIDERS: ADMIT Surgery; ATTEND Surgery
DX: K56.5 Intestinal adhesions [bands] with obstruction (postinfection) (principal); F32.9 Major depressive disorder, single episode, unspecified; G89.29 Other chronic pain; G43.909 Migraine, unspecified, not intractable, without status migrainosus; F41.9 Anxiety disorder, unspecified; R53.82 Chronic fatigue, unspecified; Z79.899 Other long term (current) drug therapy

== ENCOUNTER 2018-03-30 00:33 | Inpatient (IN) | payer BC, MEDICARE ==
[2018-03-30 02:08] LABS: BASO % 0.2 % (0.0-1.0); EOS # 0.1 10^3/uL (0.0-0.50); EOS % 0.8 % (0.0-3.0); HEMATOCRIT 41.6 % (36.0-47.0); HEMOGLOBIN 13.3 g/dl (12.0-15.5); IMMATURE GRANULOCYTE % 0.4 % (0-3.0); LYMPH # 1.8 10^3/uL (1.5-4.5); MEAN CORPUSCULAR HEMOGLOBIN 28.4 pg (27.0-33.0); MEAN CORPUSCULAR VOLUME 88.9 fl (80.0-96.0); MONO # 0.7 10^3/uL (0.0-0.8); MONO % 5.4 % (0.0-5.0); NEUTROPHILS # 9.3 10^3/uL (1.8-7.7); NEUTROPHILS % 78.2 % (36.0-66.0); PLATELET COUNT, AUTOMATED 246 10^3/uL (150-450); RED BLOOD COUNT 4.68 10^6/uL (4.00-5.40); RED CELL DISTRIBUTION WIDTH 13.8 % (11.5-14.5); WHITE BLOOD COUNT 11.9 10^3/uL (4.0-10.0)
[2018-03-30] MEDS: ONDANSETRON 4MG/2ML VIAL (J2405) IV ×2 (02:11→20:24)
[2018-03-30] MEDS: MORPHINE 4 MG/ML 1ML VIAL/SYRINGE (J2270) IV ×8 (02:12→16:21)
[2018-03-30 02:57] LABS: LACTIC ACID SEPSIS PROTOCOL 2.2 MMOL/L (0.4-2.0)
[2018-03-30 03:25] LABS: ALBUMIN 3.6 GM/DL (3.2-5.2); ALKALINE PHOSPHATASE 108 U/L (45-117); ALT/SGPT 27 U/L (12-78); ANION GAP 11 MEQ/L (8-16); AST/SGOT 18 U/L (7-37); BILIRUBIN,DIRECT < 0.1 MG/DL (0.0-0.2); BILIRUBIN,TOTAL 0.3 MG/DL (0.2-1.0); BLOOD UREA NITROGEN 22 MG/DL (7-18); CALCIUM LEVEL 9.1 MG/DL (8.8-10.2); CARBON DIOXIDE LEVEL 19 MEQ/L (21-32); CHLORIDE LEVEL 111 MEQ/L (98-107); CREATININE FOR GFR 0.94 MG/DL (0.55-1.30); GLOMERULAR FILTRATION RATE > 60.0 (>45); GLUCOSE, FASTING 101 MG/DL (70-100); LIPASE 125 U/L (73-393); SODIUM LEVEL 141 MEQ/L (136-145); TOTAL PROTEIN 6.6 GM/DL (6.4-8.2)
[2018-03-30] MEDS ORDERED: ISOVUE-370 76% 100ML VIAL (Q9967) As Ordered (03:28)
[2018-03-30] MEDS: LR 1,000 ML IV ×2 (08:49→19:57)
[2018-03-30] MEDS: PANTOPRAZOLE 40MG INJ (PROTONIX) (C9113) IV (08:49)
[2018-03-30] MEDS: LORazepam 2 MG/ML VIAL (J2060) IV (10:43)
[2018-03-30] MEDS: CHLORASEPTIC SPRAY MT ×2 (13:16→21:37)
[2018-03-30] MEDS: traZODone 100 MG TAB PO (21:27)
[2018-03-30] MEDS: SUMAtriptan SUCCINATE 25 MG TAB PO (21:27)
[2018-03-30] MEDS: LIDOCAINE 5% (LIDODERM) PATCH TOP (21:27)
[2018-03-30] MEDS: QUEtiapine FUMARATE 100 MG TAB PO (21:27)
[2018-03-31] MEDS: ONDANSETRON 4MG/2ML VIAL (J2405) IV (05:46)
[2018-03-31] MEDS: LORazepam 2 MG/ML VIAL (J2060) IV ×3 (05:48→21:49)
[2018-03-31] MEDS: SUMAtriptan SUCCINATE 25 MG TAB PO ×2 (06:01→11:56)
[2018-03-31 07:29] LABS: BASO % 0.1 % (0.0-1.0); EOS # 0.2 10^3/uL (0.0-0.50); EOS % 1.5 % (0.0-3.0); HEMATOCRIT 35.9 % (36.0-47.0); HEMOGLOBIN 11.5 g/dl (12.0-15.5); IMMATURE GRANULOCYTE % 0.4 % (0-3.0); LYMPH # 1.8 10^3/uL (1.5-4.5); LYMPH % 18.2 % (24.0-44.0); MEAN CORPUSCULAR HEMOGLOBIN 28.6 pg (27.0-33.0); MEAN CORPUSCULAR VOLUME 89.3 fl (80.0-96.0); MONO # 0.9 10^3/uL (0.0-0.8); MONO % 8.6 % (0.0-5.0); NEUTROPHILS # 7.2 10^3/uL (1.8-7.7); NEUTROPHILS % 71.2 % (36.0-66.0); PLATELET COUNT, AUTOMATED 218 10^3/uL (150-450); RED BLOOD COUNT 4.02 10^6/uL (4.00-5.40); WHITE BLOOD COUNT 10.1 10^3/uL (4.0-10.0)
[2018-03-31 07:46] LABS: ANION GAP 11 MEQ/L (8-16); BLOOD UREA NITROGEN 18 MG/DL (7-18); CARBON DIOXIDE LEVEL 21 MEQ/L (21-32); CHLORIDE LEVEL 111 MEQ/L (98-107); CREATININE FOR GFR 0.55 MG/DL (0.55-1.30); GLOMERULAR FILTRATION RATE > 60.0 (>45); GLUCOSE, FASTING 98 MG/DL (70-100); POTASSIUM SERUM 3.5 MEQ/L (3.5-5.1); SODIUM LEVEL 143 MEQ/L (136-145)
[2018-03-31] MEDS: **NOTE PATIENT COMMENT** MISC XX (09:00)
[2018-03-31] MEDS ORDERED: PILL CRUSHER/CUTTER 1 EACH XX (10:00)
[2018-03-31] MEDS: PANTOPRAZOLE 40MG INJ (PROTONIX) (C9113) IV (10:12)
[2018-03-31] MEDS: FLUoxetine 20 MG CAP PO (10:17)
[2018-03-31] MEDS: buPROPion (WELLBUTRIN SR) 100 MG SR TAB PO (10:17)
[2018-03-31] MEDS: PERCOCET 5MG/325MG TAB PO ×3 (10:31→21:19)
[2018-03-31] MEDS ORDERED: SUMAtriptan SUCCINATE 25 MG TAB PO (16:45)
[2018-03-31] MEDS: traZODone 100 MG TAB PO (21:10)
[2018-03-31] MEDS: QUEtiapine FUMARATE 100 MG TAB PO (21:10)
[2018-03-31] MEDS: LIDOCAINE 5% (LIDODERM) PATCH TOP (21:10)
[2018-03-31] MEDS: LR 1,000 ML IV (21:10)
[2018-04-01] MEDS: LR 1,000 ML IV (00:22)
[2018-04-01] MEDS: PERCOCET 5MG/325MG TAB PO (06:41)
[2018-04-01] MEDS: **NOTE PATIENT COMMENT** MISC XX (09:00)
[2018-04-01] MEDS: PANTOPRAZOLE 40MG INJ (PROTONIX) (C9113) IV (09:02)
[2018-04-01] MEDS: FLUoxetine 20 MG CAP PO (09:13)
[2018-04-01] MEDS: buPROPion (WELLBUTRIN SR) 100 MG SR TAB PO (09:13)
[2018-04-01] MEDS: oxyCODONE 5MG TAB PO ×2 (10:46→18:00)
[2018-04-01] MEDS: BISACODYL 10 MG SUPP PR (18:00)
[2018-04-01] MEDS: LIDOCAINE 5% (LIDODERM) PATCH TOP (20:42)
[2018-04-01] MEDS: QUEtiapine FUMARATE 100 MG TAB PO (20:42)
[2018-04-01] MEDS: traZODone 100 MG TAB PO (20:42)
[2018-04-02] MEDS: LR 1,000 ML IV (00:22)
[2018-04-02] MEDS: oxyCODONE 5MG TAB PO ×2 (01:09→05:24)
[2018-04-02] MEDS: FLUoxetine 20 MG CAP PO (09:10)
[2018-04-02] MEDS: **NOTE PATIENT COMMENT** MISC XX (09:11)
[2018-04-02] MEDS: PANTOPRAZOLE 40MG INJ (PROTONIX) (C9113) IV (09:11)
[2018-04-02] MEDS: buPROPion (WELLBUTRIN SR) 100 MG SR TAB PO (09:11)
== END 2018-04-02 15:11 | disposition home or self-care (01) | DRG 247 ==
LOC: M ED 00:33 → M MSPAV 08:22 → M ED INP 09:01 → M MS5PR 14:50
DX: K56.50 Intestinal adhesions [bands], unspecified as to partial versus complete obstruction (principal); F41.9 Anxiety disorder, unspecified; Z88.8 Allergy status to other drugs, medicaments and biological substances; Z79.899 Other long term (current) drug therapy; K21.9 Gastro-esophageal reflux disease without esophagitis; M54.2 Cervicalgia; M54.5 Low back pain; G43.909 Migraine, unspecified, not intractable, without status migrainosus

== ENCOUNTER 2019-02-23 14:33 | Emergency (ER) | payer BC, MEDICARE ==
[~2019-02-23] VITALS: Ht 162.6 cm; Wt 65.3 kg
[2019-02-23 14:33] VITALS: BP 128/68
[~2019-02-23 14:33] MED LIST changes: +ALBU17IN INH; +AZEL0.05 OU; +B COTAB3 PO; +B-1210009 PO; +BENEPOW7 PO; +BENT20TA PO; +BENZ200C70 PO; +BUPR200T PO; +CEFT500T3 PO; +CLOB0.0526 TOP; +CLOB05OI TOP; +CULT10CA2 PO; +DICL5SOL TOP; +DICY20TA PO; +ESTR1CRE TOP; +FISH1000 PO; +FISH7.5C PO; +FLUT1SPR2; +FLUT50SP17; -FLUTISP; +FLUTISP NARES; +IBGARD PO; +KETO2CR TOP; +LIDO2.5C15 TOP; +LIDO5TD TOP; +LINZ290C PO; +LORA-243 PO; +MEDICAL MARIJUANA; +OMEP20CA4 PO; +OPTI0.5D5 OU; -PANT40TA2 PO; +PANT40TA3 PO; +PATIENT COMMENTS; +PEPPERMINT OIL PO; +PEPT262T2 PO; +PRESCAP6 PO; +QUET1TAB10 PO; +SERO200T PO; +SUMA25TA3 PO; +TOPI50TA9 PO; +TRAZ-189 PO; +TRAZ1TAB14 PO; +TYLE325T5 PO; +VITA100018 PO; -VITA100072 PO; +VITMTA PO; +ZOFR4TAB16 PO; +[UNRECOGNIZED DRUG - OTHER] PO
[2019-02-23] MEDS ORDERED: ROSU20TA5 (14:45)
== END 2019-02-23 15:27 | disposition left against medical advice (07) ==
LOC: M ED 14:33
DX: Z53.21 Procedure and treatment not carried out due to patient leaving prior to being seen by health care provider (principal)

== ENCOUNTER → 2021-04-24 | Outpatient (CLI) | payer MEDICARE, BC ==
[~2021-04-24] MED LIST changes: -BUPR200T PO; +BUPR200T2 PO; +CYCL-707 PO; -CYCL10TA PO; -DICL5SOL TOP; +DICL5SOL3 TOP; -DICY20TA PO; +DICY20TA3 PO; +FLUO20CA20 PO; -FLUO20CA8 PO; +LIDO1CRE42 TOP; -LIDO2.5C15 TOP; +OMEP1CAP73 PO; -OMEP20CA4 PO; +PANT40TA29 PO; -PANT40TA3 PO; -QUET1TAB10 PO; +QUET300T2 PO; +ROSU20TA5
--- NOTE | 2021-04-24 16:08 | REP ---
INDICATION: M79.671 R FOOT PAIN T14.90XA INJURY. COMPARISON: None. TECHNIQUE: Four views FINDINGS: Mild to moderate degenerative changes seen throughout the digits. There is no evidence of an acute fracture or destructive osseous lesion. IMPRESSION: Chronic changes as described above. <Electronically signed by Ebenezer Gardiner > 04/24/21 [id number]
== END ==
LOC: M CLY 14:22
PROVIDERS: ATTEND Physician Assistant
DX: M79.671 Pain in right foot (principal)

== ENCOUNTER → 2021-05-02 | Outpatient (CLI) | payer MEDICARE, BC | LOC: M PAIN 14:00 | PROVIDERS: ATTEND Nurse Practitioner Family | DX: M54.2 Cervicalgia (principal); M25.552 Pain in left hip; Z86.59 Personal history of other mental and behavioral disorders; Z88.6 Allergy status to analgesic agent; Z79.891 Long term (current) use of opiate analgesic; Z79.899 Other long term (current) drug therapy ==

== ENCOUNTER → 2021-05-11 | Outpatient (CLI) | payer MEDICARE, BC | LOC: M PAIN 14:45 | PROVIDERS: ATTEND Anesthesiology | DX: M54.2 Cervicalgia (principal); M25.552 Pain in left hip; Z79.891 Long term (current) use of opiate analgesic; Z79.899 Other long term (current) drug therapy ==

== ENCOUNTER → 2021-05-19 | Outpatient (CLI) | payer MEDICARE, BC | LOC: M PAIN 15:30 | PROVIDERS: ATTEND Anesthesiology | DX: R07.89 Other chest pain (principal); M54.2 Cervicalgia; M25.552 Pain in left hip; Z86.59 Personal history of other mental and behavioral disorders; Z88.6 Allergy status to analgesic agent; Z79.899 Other long term (current) drug therapy ==

== ENCOUNTER → 2021-10-03 | Outpatient (REF) | payer MEDICARE, BC ==
[~2021-10-03] MED LIST changes: +FLUO-96 PO; -FLUO20CA20 PO
[2021-10-04 11:31] LABS: APPEARANCE, URINE CLEAR (CLEAR); BACTERIA, URINE AUTO NEGATIVE (NEGATIVE); BILIRUBIN, URINE AUTO NEGATIVE (NEGATIVE); BLOOD, URINE BLOOD NEGATIVE (NEGATIVE); COLOR, URINE YELLOW (YELLOW); GLUCOSE, URINE (UA) AUTO NEGATIVE (NEGATIVE); KETONE, URINE AUTO NEGATIVE (NEGATIVE); LEUKOCYTE ESTERASE, URINE AUTO NEGATIVE (NEGATIVE); NITRITE, URINE AUTO NEGATIVE (NEGATIVE); PROTEIN, URINE AUTO NEGATIVE (NEGATIVE); RBC, URINE AUTO 0 /HPF (0-3); SPECIFIC GRAVITY URINE AUTO 1.014 (1.002-1.035); SQUAMOUS EPITHELIAL CELL UR AU 4 /HPF (0-6); UROBILINOGEN, URINE AUTO 0.2 mg/dL (0.0-2.0); WBC, URINE AUTO 0 /HPF (0-3)
[2021-10-04 11:38] LABS: BASO % 0.2 % (0.0-1.0); EOS # 0.2 10^3/uL (0.0-0.5); HEMATOCRIT 42.4 % (36.0-47.0); HEMOGLOBIN 13.4 g/dl (12.0-15.5); LYMPH # 2.7 10^3/uL (1.5-5.0); LYMPH % 41.8 % (24.0-44.0); MEAN CORPUSCULAR HEMOGLOBIN 27.6 pg (27.0-33.0); MEAN CORPUSCULAR HGB CONC 31.6 g/dl (32.0-36.5); MEAN CORPUSCULAR VOLUME 87.2 fl (80.0-96.0); MONO # 0.5 10^3/uL (0.0-0.8); MONO % 7.1 % (2.0-8.0); NEUTROPHILS % 47.7 % (36.0-66.0); PLATELET COUNT, AUTOMATED 202 10^3/uL (150-450); RED BLOOD COUNT 4.86 10^6/uL (4.00-5.40); WHITE BLOOD COUNT 6.3 10^3/uL (4.0-10.0)
[2021-10-04 12:11] LABS: ALBUMIN 3.5 GM/DL (3.2-5.2); ALT/SGPT 81 U/L (12-78); BILIRUBIN,TOTAL 0.7 MG/DL (0.2-1.0); BLOOD UREA NITROGEN 20 MG/DL (7-18); CALCIUM LEVEL 8.8 MG/DL (8.8-10.2); CARBON DIOXIDE LEVEL 25 MEQ/L (21-32); CHLORIDE LEVEL 110 MEQ/L (98-107); CHOLESTEROL LEVEL 157 MG/DL (<200); CHOLESTEROL RISK RATIO 1.784 (<5); CREATININE FOR GFR 0.83 MG/DL (0.55-1.30); GLOMERULAR FILTRATION RATE > 60.0 (>45); GLUCOSE, FASTING 90 MG/DL (70-100); HDL CHOLESTEROL 88 MG/DL (>40); LDL CHOLESTEROL 59 MG/DL (<100); NON-HDL-C 69 MG/DL; POTASSIUM SERUM 3.9 MEQ/L (3.5-5.1); SODIUM LEVEL 141 MEQ/L (136-145); TOTAL PROTEIN 6.7 GM/DL (6.4-8.2); TRIGLYCERIDES LEVEL 52 MG/DL (<150)
[2021-10-04 13:05] LABS: TOTAL 25(OH) VITAMIN D 38.2 NG/ML (30.0-100.0); VITAMIN B12 LEVEL > 2000 PG/ML
[2021-10-04 13:06] LABS: FOLATE > 24.0 NG/ML
== END ==
LOC: M SFHCCLAY 15:33
PROVIDERS: ATTEND Physician Assistant
DX: Z00.00 Encounter for general adult medical examination without abnormal findings (principal); Z01.84 Encounter for antibody response examination; E78.00 Pure hypercholesterolemia, unspecified

== ENCOUNTER → 2021-11-13 | Outpatient (CLI) | payer MEDICARE, BC ==
[~2021-11-13] MED LIST changes: -BUPR200T2 PO; +BUPR200T41 PO
== END ==
LOC: M PLAIMG 15:11
PROVIDERS: ATTEND Anesthesiology
DX: R10.2 Pelvic and perineal pain (principal); D25.9 Leiomyoma of uterus, unspecified

== ENCOUNTER → 2021-12-19 | Outpatient (CLI) | payer MEDICARE, BC | LOC: M PAIN 14:30 | PROVIDERS: ATTEND Nurse Practitioner Family | DX: M70.62 Trochanteric bursitis, left hip (principal); G89.29 Other chronic pain; Z86.59 Personal history of other mental and behavioral disorders; Z88.6 Allergy status to analgesic agent; Z79.899 Other long term (current) drug therapy ==

== ENCOUNTER → 2021-12-20 | Outpatient (REF) | payer MEDICARE, BC ==
[2021-12-20 17:14] LABS: BASO % 0.3 % (0.0-1.0); EOS # 0.2 10^3/uL (0.0-0.5); EOS % 2.6 % (0.0-3.0); HEMATOCRIT 41.3 % (36.0-47.0); HEMOGLOBIN 13.2 g/dl (12.0-15.5); LYMPH % 45.2 % (24.0-44.0); MEAN CORPUSCULAR HEMOGLOBIN 28.1 pg (27.0-33.0); MEAN CORPUSCULAR VOLUME 88.1 fl (80.0-96.0); MONO # 0.6 10^3/uL (0.0-0.8); NEUTROPHILS # 2.8 10^3/uL (1.5-8.5); NEUTROPHILS % 42.4 % (36.0-66.0); PLATELET COUNT, AUTOMATED 219 10^3/uL (150-450); RED BLOOD COUNT 4.69 10^6/uL (4.00-5.40); WHITE BLOOD COUNT 6.6 10^3/uL (4.0-10.0)
[2021-12-20 17:50] LABS: ALBUMIN 3.4 GM/DL (3.2-5.2); ALT/SGPT 73 U/L (12-78); BILIRUBIN,TOTAL 0.2 MG/DL (0.2-1.0); BLOOD UREA NITROGEN 16 MG/DL (7-18); CALCIUM LEVEL 8.3 MG/DL (8.8-10.2); CARBON DIOXIDE LEVEL 26 MEQ/L (21-32); CHLORIDE LEVEL 105 MEQ/L (98-107); CREATININE FOR GFR 0.88 MG/DL (0.55-1.30); GLOMERULAR FILTRATION RATE > 60.0 (>45); GLUCOSE, FASTING 76 MG/DL (70-100); LIPASE 155 U/L (73-393); POTASSIUM SERUM 3.9 MEQ/L (3.5-5.1); SODIUM LEVEL 138 MEQ/L (136-145); TOTAL PROTEIN 6.7 GM/DL (6.4-8.2)
== END ==
LOC: M SFHCCLAY 14:58
PROVIDERS: ATTEND Physician Assistant
DX: R10.31 Right lower quadrant pain (principal); E07.9 Disorder of thyroid, unspecified

== ENCOUNTER → 2021-12-25 | Outpatient (CLI) | payer MEDICARE, BC ==
[~2021-12-25] MED LIST changes: +GASTROGRAFIN SOLUTION 30ML (Q9963) As Ordered ONE; +ISOVUE-370 76% 100ML VIAL As Ordered ONE
== END ==
LOC: M RAD 12:07
PROVIDERS: ATTEND Physician Assistant
DX: K44.9 Diaphragmatic hernia without obstruction or gangrene (principal); R10.32 Left lower quadrant pain; R10.31 Right lower quadrant pain
CPT/HCPCS: 36415; 74177; 81001; Q9963; Q9967

== ENCOUNTER → 2021-12-25 | Outpatient (CLI) | payer MEDICARE, BC ==
[~2021-12-25] MED LIST changes: -GASTROGRAFIN SOLUTION 30ML (Q9963) As Ordered ONE; -ISOVUE-370 76% 100ML VIAL As Ordered ONE
[2021-12-25 13:30] LABS: APPEARANCE, URINE HAZY (CLEAR); BACTERIA, URINE AUTO NEGATIVE (NEGATIVE); BILIRUBIN, URINE AUTO NEGATIVE (NEGATIVE); BLOOD, URINE BLOOD NEGATIVE (NEGATIVE); COLOR, URINE YELLOW (YELLOW); GLUCOSE, URINE (UA) AUTO NEGATIVE (NEGATIVE); KETONE, URINE AUTO TRACE mg/dL (NEGATIVE); LEUKOCYTE ESTERASE, URINE AUTO NEGATIVE (NEGATIVE); MUCUS, URINE SMALL (NEGATIVE); NITRITE, URINE AUTO NEGATIVE (NEGATIVE); PROTEIN, URINE AUTO NEGATIVE (NEGATIVE); RBC, URINE AUTO 0 /HPF (0-3); SPECIFIC GRAVITY URINE AUTO 1.024 (1.002-1.035); SQUAMOUS EPITHELIAL CELL UR AU 1 /HPF (0-6); TRANSITIONAL EPITHELIAL AUTO <1 /HPF; UROBILINOGEN, URINE AUTO 0.2 mg/dL (0.0-2.0); WBC, URINE AUTO 1 /HPF (0-3)
== END ==
LOC: M LAB 12:22
PROVIDERS: ATTEND Physician Assistant
DX: R10.31 Right lower quadrant pain (principal)